=== PATIENT | female | born 1985 | race Caucasian/White ===

== ENCOUNTER 2017-01-05 08:44 | Emergency (ER) | payer MEDICAID ==
[~2017-01-05] VITALS: Ht 157.5 cm; Wt 65.8 kg
[2017-01-05 09:30] LABS: BASOPHILS % (AUTO) 0.4 % (0.0-2.0); DIFF TOTAL % 100 %; EOSINOPHILS # (AUTO) 0.1 /CMM (0.0-0.7); EOSINOPHILS % (AUTO) 2.6 % (0.0-6.0); HEMATOCRIT 39 % (33-45); HEMOGLOBIN 13.6 g/dL (11.5-14.8); LYMPHOCYTES # (AUTO) 1.4 /CMM (0.8-4.8); LYMPHOCYTES % (AUTO) 24.7 % (20.0-44.0); MEAN CORPUSCULAR HEMOGLOBIN 31 PG (26.0-33.0); MEAN CORPUSCULAR HGB CONC 35 g/dl (31.0-36.0); MEAN CORPUSCULAR VOLUME 88 fL (82-100); MONOCYTES # (AUTO) 0.6 /CMM (0.1-1.30); MONOCYTES % (AUTO) 10.8 % (2.0-12.0); NEUTROPHILS # (AUTO) 3.6 /CMM (1.8-8.9); NEUTROPHILS % (AUTO) 61.5 % (43.0-81.0); PLATELET COUNT (AUTO) 230 /CMM (150-450); RED BLOOD CELL COUNT(AUTO) 4.45 MIL/uL (4.0-5.2); WHITE BLOOD COUNT (AUTO) 5.7 K/uL (4.3-11.0)
[2017-01-05 09:38] LABS: CALCIUM, SERUM 8.7 mg/dL (8.5-10.1); CREATININE 0.7 mg/dL (0.6-1.3); POTASSIUM 3.3 mmol/L (3.5-5.1)
[2017-01-05 09:45] LABS: KETONES,URINE Negative (NEGATIVE); LEUKOCYTE ESTERASE ,URINE Negative (NEGATIVE)
[2017-01-05 09:47] LABS: ADD UA MICROSCOPIC YES
[2017-01-05 09:48] LABS: PREGNANCY TEST URINE QUAL POSITIVE (NEGATIVE)
[2017-01-05 09:56] LABS: ADD URINE CULTURE NO; RBC,URINE 0-2 /HPF (0-2)
[2017-01-05 10:08] LABS: THYROID STIMULATING HORMONE 1.76 uIU/mL (0.358-3.74)
[2017-01-05 11:45] VITALS: BP 120/60
== END 2017-01-05 11:46 | disposition home or self-care (01) ==
LOC: ER 08:47
DX: O26.891 Other specified pregnancy related conditions, first trimester (principal); L02.512 Cutaneous abscess of left hand; F41.9 Anxiety disorder, unspecified; F17.200 Nicotine dependence, unspecified, uncomplicated
CPT/HCPCS: 36415; 76856; 80048; 81001; 84443; 84702; 84703; 85025; 99285; A4606; Z7610; 81000-TC

== ENCOUNTER 2017-01-08 17:49 | Emergency (ER) | payer MEDICAID ==
[~2017-01-08] VITALS: Ht 157.5 cm; Wt 65.8 kg
[2017-01-08 17:50] VITALS: BP 102/58
--- NOTE | 2017-01-08 19:35 | NUR ---
DE[facility] OF WOMEN AT BED SIDE FOR ULTRASOUND
[2017-01-08] MEDS ORDERED: ACETAMINOPHEN ES 500 MG TABLET PO ONE (20:30)
== END 2017-01-08 20:29 | disposition home or self-care (01) ==
LOC: ER 17:52
DX: O99.89 Other specified diseases and conditions complicating pregnancy, childbirth and the puerperium (principal); R22.9 Localized swelling, mass and lump, unspecified; F41.9 Anxiety disorder, unspecified; F17.200 Nicotine dependence, unspecified, uncomplicated; Z3A.00 Weeks of gestation of pregnancy not specified
CPT/HCPCS: 76882; 84703-TC; A4606; Z7610